=== PATIENT | male | born 1950 | race Caucasian/White ===

== ENCOUNTER → 2016-08-15 | Day surgery (SDC) | payer BC ==
[~2016-08-15] VITALS: Ht 175.3 cm; Wt 98.8 kg
[~2016-08-15] MED LIST: ACCUPRIL40 MG PO; ALDACTONE25 MG PO; ASPIRIN EC81 MG PO; ATORVASTATIN CA20 MG PO; CARDIZEM CD360 MG PO; FINASTERIDE5 MG PO; K-TAB 10MEQ10 MEQ PO; LEVAQUIN500 MG PO; LEVITRA20 MG PO; PYRIDIUM100 MG PO; THERAGRAN-M1 TAB PO; TOPROL XL 5050 MG PO; ZYLOPRIM300 MG PO
--- NOTE | ~2016-08-15 | OR ---
PATIENT'S NAME: KRISTY DRAKE [facility] AGE: 66 Y [address] ROOM: [place] [address] LOCATION: [facility] [place] ADMIT DATE: 08/15/2016 OR/Procedure Report DISCHARGE DATE: FAMILY PHYSICIAN: ALLISON PÉREZ MD ATTENDING PHYSICIAN: YESICA UY SURGEON: Yesica Yu MD BIOLOGICAL CHEMIST: None. DATE OF PROCEDURE: 08/15/2016 PREOPERATIVE DIAGNOSES: 1. Benign prostatic hyperplasia with bladder outlet obstruction. 2. Lower urinary tract symptoms. POSTOPERATIVE DIAGNOSES: 1. Benign prostatic hyperplasia with bladder outlet obstruction. 2. Lower urinary tract symptoms. OPERATIVE PROCEDURE: Cystoscopy with UroLift procedure (prostatic urethral lift). INDICATIONS FOR PROCEDURE: The patient is a pleasant 66-year-old male with history of BPH and lower urinary tract symptoms. He was explained the risks, benefits, indications, and alternatives to the above procedure and wished to proceed and consented freely. DESCRIPTION OF OPERATION: The patient was brought back to the operating room where he was placed on the OR table in the supine position. A surgical time- out was called where patient identification, procedure site, and procedure was then verified. We also did verify the patient received an IV Levaquin antibiotic within an hour beginning the procedure. The patient then underwent successful administration of monitored anesthesia care. The patient was then placed in the low lithotomy position where his genital area was then prepped and draped in the usual sterile fashion. I began by advancing the 20-Thai cystoscope sheath with long bridge per urethra. His anterior urethra was within normal limits. His posterior urethra was notable for a moderate-to- severe bilobar hyperplasia of the prostate. His bladder was negative for any bladder tumors, cellules, or diverticula. He did have moderate bladder trabeculation noted throughout. His ureteral orifices were noted to be in their orthotopic location. The cystoscope bridge was then replaced with the UroLift implant delivery device. The first treatment site was the patient's right side, approximately 1.5 cm distal to the bladder neck. The distal tip of the delivery device was then angled laterally approximately 20 degrees at this position to compress the lateral lobe. The trigger was pulled thereby deploying a needle containing the implant through the prostate. The needle was then retracted, allowing one end of the implant to be delivered to the PATIENT'S NAME: BARRESI, [facility] AGE: 66 Y [address] ROOM: [place] [address] LOCATION: [facility] [place] ADMIT DATE: 08/15/2016 OR/Procedure Report DISCHARGE DATE: FAMILY PHYSICIAN: ALLISON PÉREZ MD ATTENDING PHYSICIAN: YESICA YU capsular surface of the prostate. The implant was then tensioned to assure capsular seating and removal of slack monofilament. The device was then angled back toward midline and it slowly advanced proximally until verification with cystoscopy of the monofilament being centered in the delivery bay. With a final triggering, the urethral end piece was then affixed to the monofilament, thereby tailoring the size and tension of the implant. Excess filament was severed with this maneuver. The device was then readvanced into the bladder. The opening effect from the implant placement was confirmed with cystoscopy. The above identical sequence was then repeated on the patient's left side. I then reinspected for successful placement of each implant as well as the degree of lateral lobe obstruction remaining. Two additional implants were delivered just proximal to the verumontanum in the same fashion, again one on the patient's right side and one on the left side. There was still persistent obstruction noted along the patient's mid prostate, which required placement of 4 additional implants bilaterally. A total of 8 implants were delivered successfully. A final cystoscopy was then performed to inspect location and state of each implant to assure proper seating and location. Final inspection also revealed a patent prostatic urethra with irrigation flow turned off. I did leave approximately 200 mL of irrigation fluid in his bladder to assist the patient with his voiding trial. I then removed the cystoscope. The patient was then taken out of the lithotomy position where he was then awoken for monitored anesthesia care, transferred to the recovery bed, and transported to the recovery room in good condition. COMPLICATIONS: None. DRAINS: None. ESTIMATED BLOOD LOSS: Minimal. FOLLOWUP PLAN: We will plan to have the patient undergo a voiding trial today in clinic prior to discharge home. If he passes his voiding trial, we will then plan to see him back in Urology Clinic in approximately 2 to 3 weeks for followup. The patient did tolerate the procedure well. MD JAMES PEÑA/carmelol /[id number] d: 08/16/16 0039 t: 08/29/16 1918, OPERATIVE SUMMARY
== END | disposition disaster alternative care site (69) ==
LOC: GPOC 08-09 14:00 → GSDC 09:43
PROC: 0T7D8DZ Dilation of Urethra with Intraluminal Device, Via Natural or Artificial Opening Endoscopic (ICD-10-PCS; principal; 2016-08-15)
DX: N40.1 Benign prostatic hyperplasia with lower urinary tract symptoms (principal); N13.8 Other obstructive and reflux uropathy; N52.9 Male erectile dysfunction, unspecified; I10 Essential (primary) hypertension; E78.5 Hyperlipidemia, unspecified; Z90.49 Acquired absence of other specified parts of digestive tract; Z98.890 Other specified postprocedural states
CPT/HCPCS: J1956; J7120; L8699

== ENCOUNTER → 2016-09-07 | Emergency (ER) | payer BC | LOC: GAMB 17:09 | DX: F10.129 Alcohol abuse with intoxication, unspecified (principal); R42 Dizziness and giddiness; I10 Essential (primary) hypertension; W19.XXXA Unspecified fall, initial encounter ==

== ENCOUNTER 2016-11-27 14:41 | Emergency (ER) | payer BC ==
--- NOTE | ~2016-11-27 | ER ---
PATIENT'S NAME: [facility] AGE: 66 Y [address] ROOM: [place], [place] [address] LOCATION: ED ADMIT DATE: 11/27/2016 ER/Outpatient Report DISCHARGE DATE: 11/27/2016 FAMILY PHYSICIAN: Criselda Mccord MD ATTENDING PHYSICIAN: Angie Smith Time of Arrival: 1454. Time of Evaluation: 1454. CHIEF COMPLAINT: Abdominal pain. HISTORY OF PRESENT ILLNESS: The patient states that he woke up about 6 o'clock this morning with generalized abdominal pain. He states it is at the upper abdominal area and goes straight through to his back. He has not had any nausea. Has not had any vomiting. He has had decreased appetite, but denies having any fever or chills. Did have diarrhea stool yesterday. Has not had any pain or frequency with urination. He states he drank some water about half hour prior to arrival but otherwise has not had much to eat or drink today. Denies having had pain like this before. ALLERGIES: NO KNOWN ALLERGIES. CURRENT MEDICATIONS: On his chart and reviewed by me. 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 PAST SURGERIES: Partial colectomy, cystoscopy with a UroLift done in July of 2016, cholecystectomy, TURP, left knee, tonsils and adenoids. SOCIAL HISTORY: Smokes a pack per day and has for the last 30 years. Drinks at least 1 or 2 cocktails per day. Denies the use of street drugs. REVIEW OF SYSTEMS: All negative other than those mentioned in the HPI. PHYSICAL EXAMINATION: PATIENT'S NAME: [facility] AGE: 66 Y [address] ROOM: [place], [place] [address] LOCATION: [facility] ADMIT DATE: 11/27/2016 ER/Outpatient Report DISCHARGE DATE: 11/27/2016 FAMILY PHYSICIAN: Criselda Mccord MD ATTENDING PHYSICIAN: Angie Smith VITAL SIGNS: He weighed 103.2 kg. Blood pressure was 184/88, pulse of 56, respirations 16, temperature of 98.3, O2 saturation was 96% on room air. GENERAL: He is awake, alert, and oriented x4. SKIN: [place], warm, and dry. RESPIRATIONS: Even and nonlabored. Lung sounds are clear throughout. HEART: Regular rate and rhythm. ABDOMEN: Soft, nondistended. Bowel sounds are present. He is tender in the right upper quadrant, but also tender in the left lower quadrant. EXTREMITIES: He walked in with a steady even gait. EMERGENCY DEPARTMENT COURSE: Saline lock was initiated with fluids of normal saline started. CBC shows a white count of 10.8, hemoglobin was 18.6. Chem panel: Sodium is 139, potassium is 4.7, chloride 107. Glucose is 114. BUN is 10 with a creatinine of 0.9. Amylase was 61, lipase was 186. CPK is 79, CK-MB is 1.5. Troponin was negative. Lactate was 1.8. Procalcitonin is negative. He was given fentanyl for pain, felt like that made things worse. He did go over for a CT scan of the abdomen. Radiologist reports that he has bilateral complex and simple renal cyst. There is one in the left that is larger than the previous study. Previously, it measured around 7 cm on January of 2015 and today it measures up to 11. He does have a 4 cm mass of the small bowel mesentery. He does have some diverticula, but no diverticulosis at this time. The patient was given a GI cocktail. It did not change his pain in any way. He was given morphine 2 mg IV. Fluids were finished infusing. With the morphine, he states he is feeling better. Did discuss the results with the patient. The patient states he would prefer to go home versus being admitted. He feels he could get comfortable at home and he does have some hydrocodone at home that he could take later for pain if needed. IMPRESSION: 1. Abdominal pain. 2. Bilateral kidney cyst, renal cyst. 3. Small bowel mesentery mass. PLAN: Home, rest, fluids. Follow up with primary provider in the next 1 to 2 days. Return to the ER if symptoms worsen. He and his significant other verbalized understanding. GARETH HOWARD APRN FOR MD ELI HMUMEL/carrie PATIENT'S NAME: KRISTY DRAKE [facility] AGE: 66 Y [address] ROOM: [place] [address] LOCATION: [facility] ADMIT DATE: 11/27/2016 ER/Outpatient Report DISCHARGE DATE: 11/27/2016 FAMILY PHYSICIAN: Criselda Mccord MD ATTENDING PHYSICIAN: Angie Smith /[id number] d: 11/27/16 2318 t: 12/05/16 1224, OUTPATIENT REPORT
[2016-11-27 15:30] LABS: BASOPHIL # 0.1 K/uL (0.0-0.2); BASOPHIL % 0.5 %; EOSINOPHIL % 0.2 %; HEMOGLOBIN 18.6 g/dL (11.0-16.0); IMMATURE GRANULOCYTE # 0.1 K/uL (0.0-0.3); IMMATURE GRANULOCYTE % 0.6 %; LYMPHOCYTE # 1.2 K/uL (0.8-4.0); LYMPHOCYTE % 11.4 %; MCH 34.8 pg (27.0-34.0); MCHC 34.4 gm/dL (32.0-36.5); MCV 101.1 fl (83.0-98.0); MONOCYTE # 0.9 K/uL (0.0-1.0); MONOCYTE % 8.5 %; MPV 10.7 fl (9.4-12.4); NEUTROPHIL # (ANC) 8.5 K/uL (1.4-9.0); NEUTROPHIL % 78.8 %; NRBC % 0 /100WBC (0-0.00); PLATELET COUNT 184 K/uL (150-450); RBC 5.34 M/uL (3.50-5.50); RDW-CV 12.6 % (11.9-14.6); WBC 10.8 K/uL (4.0-11.0)
[2016-11-27 15:40] LABS: INR - (THERAPEUTIC) 0.94 (0.92-1.07); PROTIME 9.9 SECONDS (9.8-11.4); PTT 26 SECONDS (25-32)
[2016-11-27 15:56] LABS: ALBUMIN 3.6 gm/dL (3.5-5.0); ALK PHOS 78 IU/L (33-138); ALT 41 IU/L (12-78); BLOOD UREA NITROGEN 10 mg/dL (6-24); CALCIUM 8.8 mg/dL (8.5-10.5); CHLORIDE 107 mMol/L (96-110); CO2 24 mMol/L (22-32); CREATININE 0.9 mg/dL (0.6-1.3); SODIUM 139 mMol/L (135-145); TOTAL BILIRUBIN 0.8 mg/dL (0.0-1.5); TOTAL PROTEIN 6.8 g/dL (6.0-8.4)
[2016-11-27 15:58] LABS: ANION GAP 12.7 (10.0-19.0); AST 28 IU/L (10-40); CPK 79 IU/L (35-332)
[2016-11-27 15:59] LABS: POTASSIUM 4.7 mMol/L (3.7-5.1)
[2016-11-27 17:03] LABS: BILIRUBIN URINE NEGATIVE (NEGATIVE); BLOOD URINE NEGATIVE /UL (NEGATIVE); COLOR URINE YELLOW (YELLOW); GLUCOSE URINE NEGATIVE (NEGATIVE); KETONE URINE NEGATIVE (NEGATIVE); LEUKOCYTES URINE NEGATIVE /UL (NEGATIVE); NITRITE URINE NEGATIVE (NEGATIVE); PH URINE 6.5 (4.0-8.0); PROTEIN URINE 30 mg/dL (NEGATIVE); TURBIDITY URINE CLEAR (CLEAR); UROBILINOGEN URINE NORMAL (NORMAL)
[2016-11-27 17:13] LABS: BACTERIA URINE FEW (NEGATIVE); MUCUS URINE 1+ (NEGATIVE); RBC URINE NEGATIVE #/HPF (NEGATIVE); WBC URINE NEGATIVE #/HPF (NEGATIVE)
== END 2016-11-27 17:28 | disposition disaster alternative care site (69) ==
LOC: GMED 14:41
PROVIDERS: Nurse Practitioner Family
DX: N28.1 Cyst of kidney, acquired (principal); I10 Essential (primary) hypertension; F17.210 Nicotine dependence, cigarettes, uncomplicated; K63.89 Other specified diseases of intestine; E78.5 Hyperlipidemia, unspecified; M19.90 Unspecified osteoarthritis, unspecified site; K21.9 Gastro-esophageal reflux disease without esophagitis; I25.10 Atherosclerotic heart disease of native coronary artery without angina pectoris; Z79.899 Other long term (current) drug therapy; Z90.49 Acquired absence of other specified parts of digestive tract; Z79.82 Long term (current) use of aspirin
CPT/HCPCS: J2270; J3010; J7030; Q9967